=== PATIENT | male | born 1965 | race Caucasian/White ===

== ENCOUNTER 2016-08-24 11:03 | Emergency (ER) | payer BC, OTHER ==
[2016-08-24 11:26] VITALS: PULSE 55; RESP 16; TEMP 98.1
[2016-08-24 11:26] LABS: % IMMATURE GRANULYOCYTES 0.2 % (0.0-1.1); ABSOLUTE IMMATURE GRANULOCYTES 0.01 10^3/uL (0.00-0.10); ADD DIFF? NO; ADD MORPH? NO; ADD SCAN? NO; ATYPICAL LYMPHOCYTE FLAG 10 (0-99); FRAGMENT RBC FLAG 0 (0-99); HEMATOCRIT 47.8 % (40.0-51.0); HEMOGLOBIN 16.8 g/dL (13.7-17.5); LEFT SHIFT FLG 0 (0-99); LIPEMIA HEMOLYSIS FLAG 90 (0-99); MEAN CELL HEMOGLOBIN 31.4 pg (27.9-34.1); MEAN CELL HEMOGLOBIN CONCENTR. 35.1 g/dL (32.4-36.7); MEAN CELL VOLUME 89.3 fL (81.5-99.8); MEAN PLATELET VOLUME 9.2 fL (8.7-11.7); PLATELET CLUMPS FLAG 0 (0-99); PLATELET COUNT 294 10^3/uL (150-400); RED BLOOD CELL COUNT 5.35 10^6/uL (4.40-6.38); RED CELL DISTRIBUTION WIDTH 12.6 % (11.5-15.2)
--- NOTE | 2016-08-24 11:30 | EDPHY ---
H & P Time Seen by Provider: 08/24/16 11:18 HPI/ROS: CHIEF COMPLAINT: Bright red blood per rectum HISTORY OF PRESENT ILLNESS: 51-year-old male presents with bright red blood per rectum. 8 days ago he had a a bowel movement; the bowel movement was of normal color and was surrounded by bright red blood in the toilet water. No associated pain. His bowel movements were normal until 2 days ago when he had 1 black stool and bright red blood in the toilet water. Yesterday, he had a normal-colored stool of small caliber and blood in the toilet water. He was seen by Dr. Morfin in the office just prior to arrival. Systolic blood pressure 88/66 in the office. Rectal exam revealed red blood, minimal/no stool present, Hemoccult-positive. No associated dizziness or weakness. No prior history of GI bleed. No NSAID use. REVIEW OF SYSTEMS: Complete 10 point review of systems is negative except as marked in the HPI. Past Medical/Surgical History: Denies Social History: Smoking Status: Never smoked Physical Exam: General Appearance: Alert, pleasant Eyes: Pupils equal and round, no conjunctival pallor ENT, Mouth: Mucous membranes moist Neck: Normal inspection Respiratory: Lungs are clear to auscultation Cardiovascular: Regular rate and rhythm Gastrointestinal: Abdomen is soft and nontender Neurological: A&O, nonfocal, normal gait Skin: Warm and dry, no rash Extremities: Normal inspection Psychiatric: Mood and affect normal Constitutional: Initial Vital Signs Temperature (C) 36.7 C 08/24/16 11:05 Heart Rate 55 L 08/24/16 11:05 Respiratory Rate 16 08/24/16 11:05 Blood Pressure 121/83 H 08/24/16 11:05 O2 Sat (%) 94 08/24/16 11:05 O2 Delivery Mode Room Air Allergies/Adverse Reactions: Penicillins Allergy (Unknown, Verified 08/24/16 11:26) Home Medications: Medication Instructions Recorded Symbicort 160-4.5 Mcg Inh (RX) 11/27/12 Ventolin 11/27/12 Famciclovir 08/24/16 Medical Decision Making ED Course/Re-evaluation: This patient presents with GI bleeding. The most likely source is a lower GI bleed, such as internal hemorrhoids or fissure, with normal stool formation and blood in the toilet water. Blood pressure is normal and hematocrit is normal. Anoscopy performed by me: There is a thrombosed internal hemorrhoid, no active bleeding. There is no stool in the vault and no blood or black stool present. Results discussed with the patient. The thrombosed internal hemorrhoid is the likely source of bleeding. He understands that he needs to follow up with GI promptly. He will return to the emergency department for increasing bleeding, black tarry stools, dizziness or any concerns. Differential Diagnosis: Differential diagnosis includes though is not limited to severe anemia, hypotension, upper GI bleed, diverticular bleed, AVM. - Data Points Laboratory Results: Laboratory Results 08/24/16 11:24 08/24/16 11:24 08/24/16 08/24/16 11:24 11:24 WBC 5.92 10^3/uL 10^3/uL (3.80-9.50) RBC 5.35 10^6/uL 10^6/uL (4.40-6.38) Hgb 16.8 g/dL g/dL (13.7-17.5) Hct 47.8 % % (40.0-51.0) MCV 89.3 fL fL (81.5-99.8) MCH 31.4 pg pg (27.9-34.1) MCHC 35.1 g/dL g/dL (32.4-36.7) RDW 12.6 % % (11.5-15.2) Plt Count 294 10^3/uL 10^3/uL (150-400) MPV 9.2 fL fL (8.7-11.7) Neut % (Auto) 57.1 % % (39.3-74.2) Lymph % (Auto) 30.4 % % (15.0-45.0) [place] % (Auto) 7.4 % % (4.5-13.0) Eos % (Auto) 3.5 % % (0.6-7.6) Baso % (Auto) 1.4 % % (0.3-1.7) Nucleat RBC Rel Count 0.0 % % (0.0-0.2) Absolute Neuts (auto) 3.38 10^3/uL 10^3/uL (1.70-6.50) Absolute Lymphs (auto) 1.80 10^3/uL 10^3/uL (1.00-3.00) Absolute Monos (auto) 0.44 10^3/uL 10^3/uL (0.30-0.80) Absolute Eos (auto) 0.21 10^3/uL 10^3/uL (0.03-0.40) Absolute Basos (auto) 0.08 10^3/uL 10^3/uL (0.02-0.10) Absolute Nucleated RBC 0.00 10^3/uL 10^3/uL (0-0.01) Immature Gran % 0.2 % % (0.0-1.1) Immature Gran # 0.01 10^3/uL 10^3/uL (0.00-0.10) Sodium 142 mEq/L mEq/L (134-144) Potassium 4.0 mEq/L mEq/L (3.5-5.2) Chloride 103 mEq/L mEq/L (97-110) Carbon Dioxide 26 mEq/l mEq/l (22-31) Anion Gap 13 mEq/L mEq/L (8-16) BUN 18 mg/dL mg/dL (7-23) Creatinine 0.9 mg/dL mg/dL (0.7-1.3) Estimated GFR > 60 Glucose 87 mg/dL mg/dL (70-100) Calcium 9.3 mg/dL mg/dL (8.5-10.4) Total Bilirubin 0.7 mg/dL mg/dL (0.1-1.4) Conjugated Bilirubin 0.2 mg/dL mg/dL (0.0-0.5) Unconjugated Bilirubin 0.5 mg/dL mg/dL (0.0-1.1) AST 25 IU/L IU/L (17-59) ALT 33 IU/L IU/L (21-72) Alkaline Phosphatase 67 IU/L IU/L (38-126) Total Protein 6.8 g/dL g/dL (6.3-8.2) Albumin 4.2 g/dL g/dL (3.5-5.0) Departure - Departure Disposition: Home, Routine, Self-Care Clinical Impression: Bright red blood per rectum Condition: Good Instructions: Rectal Bleeding (ED) Additional Instructions: On the anoscopy exam today, you have a thrombosed internal hemorrhoid. This is a likely source of bleeding. However, you need to followup with a song and dance performer for a more thorough evaluation of the source of GI bleeding. Return for increasing bleeding, dizziness, abdominal pain or any concerns. Referrals: Carroll Brooks MD [Medical Doctor] - As per Instructions (Call today to make an appointment.) Francisca Morfin, [Primary Care Provider] - 2-3 days, if not improved (Follow-up with Dr. Morfin for recheck.)
[2016-08-24 11:43] LABS: ALANINE AMINOTRANSFERASE 33 IU/L (21-72); ALBUMIN 4.2 g/dL (3.5-5.0); ALKALINE PHOSPHATASE 67 IU/L (38-126); ANION GAP 13 mEq/L (8-16); ASPARTATE AMINOTRANSFERASE 25 IU/L (17-59); BILIRUBIN,TOTAL 0.7 mg/dL (0.1-1.4); BILIRUBIN-CONJUGATED 0.2 mg/dL (0.0-0.5); BILIRUBIN-UNCONJUGATED 0.5 mg/dL (0.0-1.1); CALCIUM 9.3 mg/dL (8.5-10.4); CARBON DIOXIDE 26 mEq/l (22-31); CHLORIDE 103 mEq/L (97-110); CREATININE 0.9 mg/dL (0.7-1.3); GLOMERULAR FILTRATION RATE > 60; GLUCOSE 87 mg/dL (70-100); SODIUM 142 mEq/L (134-144); TOTAL PROTEIN 6.8 g/dL (6.3-8.2)
[2016-08-24 11:56] VITALS: BP 104/73; O2SAT 95
== END 2016-08-24 11:55 | disposition home or self-care (01) ==
LOC: CED 11:03
DX: K62.5 Hemorrhage of anus and rectum (principal)
CPT/HCPCS: 80048-PO; 80076-PO; 85025-PO